=== PATIENT | female | born 1995 | race Caucasian/White ===

== ENCOUNTER 2020-05-01 16:23 | Emergency (ER) | payer BC ==
[~2020-05-01] VITALS: Ht 152.4 cm; Wt 60.5 kg
[~2020-05-01 16:23] MED LIST: FERROUS SU325 MG/TAB PO; IBU600 MG PO; PERCOCET 325 MG1 TA2 PO; PRENATAL1 TA7 PO
[2020-05-01 16:29] VITALS: TEMP 98.2
[2020-05-01 17:24] LABS: BASO # 0.1 (0.0-0.2); BASO % 0.4 % (0.0-2.0); EOS # 0.1 (0.0-0.7); EOS % 0.6 % (0-4.0); GRAN # 8.1 (1.4-6.5); GRAN % 70.7 % (42.2-75.2); LYMPH # 2.6 (1.2-3.4); LYMPH % 22.5 % (20.0-51.0); MEAN CELL VOLUME 89 fl (80.0-100.0); MEAN CORPUSCULAR HEMOGLOBIN 30 pg (27.0-31.0); MEAN CORPUSCULAR HGB CONC 34 g/dl (33.0-37.0); MONO # 0.6 (0.1-0.6); MONO % 5.5 % (1.7-9.3); PLATELET COUNT 489 K/mm3 (130-400); RED BLOOD COUNT 4.03 M/mm3 (4.10-5.30); REDCELL DISTRIBUTION WIDTH-CV 13.1 % (11.5-14.5)
[2020-05-01 17:28] LABS: ALBUMIN 4.5 gm/dL (3.5-5.0); BILIRUBIN,TOTAL 0.4 mg/dL (0.0-1.0); C-REACTIVE PROTEIN 1.1 mg/dL (0.0-0.9); CALCIUM 9.3 mg/dL (8.4-10.2); CREATININE, serum 0.66 (0.52-1.25); POTASSIUM 3.6 mmol/L (3.4-5.0); TOTAL PROTEIN 7.7 gm/dL (6.4-8.2)
[2020-05-01 17:30] LABS: HEMATOCRIT 35.7 % (37.0-47.0)
[2020-05-01 19:02] VITALS: BP 122/75; PULSE 85
== END 2020-05-01 19:00 | disposition home or self-care (01) ==
LOC: COL.ER 16:23
PROVIDERS: Emergency Medicine
DX: O26.891 Other specified pregnancy related conditions, first trimester (principal); R51 Headache; R53.1 Weakness; R20.2 Paresthesia of skin; H54.61 Unqualified visual loss, right eye, normal vision left eye; Z3A.01 Less than 8 weeks gestation of pregnancy
CPT/HCPCS: J2550; J7030

== ENCOUNTER → 2020-05-02 | Outpatient (CLI) | payer BC | LOC: COL.RAD 14:09 | DX: O26.891 Other specified pregnancy related conditions, first trimester (principal); Z3A.01 Less than 8 weeks gestation of pregnancy; R20.0 Anesthesia of skin ==

== ENCOUNTER 2020-12-16 04:33 | Inpatient (IN) | payer BC ==
[~2020-12-16] VITALS: Ht 152.4 cm; Wt 72.7 kg
[2020-12-16] VITALS (24 sets, daily range): BP systolic 132–166; BP diastolic 72–93; PULSE 56–88; TEMP 98.1–98.7
--- NOTE | 2020-12-16 04:45 | NUR ---
0445- PT PRESENTS TO LDR FOR SCHEDULED C/S. AMBULATORY TO ROOM 210, CHANGED INTO GOWN. 0458- EFM X2 APPLIED. PLAN OF CARE DISCUSSED WITH PT AND QUESTIONS ANSWERED. 0515- IV START TO RIGHT HAND CHARTED. BLOOD DRAWN FOR LAB, LR INFUSING FOR PREOP ORDERED. 0530- PT OFF MONITORS. 0535- CONSENTS SIGNED. 0545- SUPRAPUBIC AREA SHAVED AND PREPPED WITH SCRUB. PLAN OF CARE DISCUSSED AND QUESTIONS ANSWERED. PT DENIES FURTHER NEEDS AT THIS TIME.
[2020-12-16 06:00] LABS: BASO # 0.1 (0.0-0.2); BASO % 0.5 % (0.0-2.0); EOS # 0.1 (0.0-0.7); EOS % 0.8 % (0-4.0); GRAN # 6.1 (1.4-6.5); GRAN % 60.8 % (42.2-75.2); LYMPH % 29.8 % (20.0-51.0); MEAN CELL VOLUME 81 fl (80.0-100.0); MEAN CORPUSCULAR HGB CONC 31 g/dl (33.0-37.0); MONO # 0.8 (0.1-0.6); MONO % 7.4 % (1.7-9.3); PLATELET COUNT 322 K/mm3 (130-400); RED BLOOD COUNT 3.87 M/mm3 (4.10-5.30); REDCELL DISTRIBUTION WIDTH-CV 14.5 % (11.5-14.5)
[2020-12-16 06:12] LABS: HEMATOCRIT 31.3 % (37.0-47.0); HEMOGLOBIN 9.6 g/dl (12.5-16.0); MEAN CORPUSCULAR HEMOGLOBIN 25 pg (27.0-31.0)
[2020-12-16 06:14] LABS: ALANINE AMINOTRANSFERASE 11 U/L (4-34); ALBUMIN 3.5 gm/dL (3.5-5.0); ALKALINE PHOSPHATASE 113 U/L (50-136); ANION GAP 6 mmol/L (7-16); AST,SGOT 21 U/L (15-37); BILIRUBIN,TOTAL < 0.1 mg/dL (0.0-1.0); BLOOD UREA NITROGEN 6 mg/dL (7-17); CALCIUM 8.4 mg/dL (8.4-10.2); CARBON DIOXIDE 21 mmol/L (22-30); CHLORIDE 106 mmol/L (98-107); CREATININE, serum 0.68 (0.52-1.25); GLUCOSE 79 mg/dL (74-106); POTASSIUM 4.1 mmol/L (3.4-5.0); SODIUM 134 mmol/L (137-145); TOTAL PROTEIN 6.6 gm/dL (6.4-8.2)
--- NOTE | 2020-12-16 06:47 | NUR ---
7525 assessment completed and patient ready for OR. denies needs at this time
[2020-12-17 03:05] VITALS: BP 144/81; PULSE 75; TEMP 98.2
[2020-12-17 06:40] LABS: HEMATOCRIT 26.4 % (37.0-47.0); HEMOGLOBIN 8.1 g/dl (12.5-16.0)
[2020-12-17 07:00] VITALS: BP 137/79; PULSE 71; TEMP 98.3
[2020-12-17] MEDS ORDERED: PERCOCET 325 MG1 TA2 PO (07:50)
[2020-12-17] MEDS ORDERED: MOTRIN 600600 MG/TAB PO (07:50)
[2020-12-17 15:50] VITALS: BP 125/63; PULSE 78; TEMP 98.6
[2020-12-17 23:00] VITALS: BP 137/81; PULSE 74; TEMP 98.8
[2020-12-18 07:45] VITALS: BP 136/49; PULSE 87; TEMP 98.3
--- NOTE | 2020-12-18 09:28 | NUR ---
Initial visit; Family thanked Power Equipment Mechanics Instructor for offering congratulations and God's blessings for the of their daughter. Power Equipment Mechanics Instructor thanked family for choosing [facility].
--- NOTE | 2020-12-18 12:45 | NUR ---
This RN escorts pt, spouse, and to vehicle after infant's car seat straps are verified to be properly secured. Pt elects to go out in wheel chair as she recently had pain medication. All family memebers secured in private vehicle at ER entrance.
== END 2020-12-18 10:23 | disposition home or self-care (01) | DRG 788 ==
LOC: OB 04:33
PROVIDERS: ADMIT Obstetrics & Gynecology
PROC: 10D00Z1 Extraction of Products of Conception, Low, Open Approach (ICD-10-PCS; principal; 2020-12-16)
DX: O34.211 Maternal care for low transverse scar from previous cesarean delivery (principal); Z37.0 Single live birth; O13.4 Gestational [pregnancy-induced] hypertension without significant proteinuria, complicating childbirth; O99.02 Anemia complicating childbirth; D64.9 Anemia, unspecified; Z3A.38 38 weeks gestation of pregnancy
CPT/HCPCS: J0690; J1100; J1885; J2405; J2590; J2765; J7120